=== PATIENT | female | born 2000 | race Caucasian/White ===

== ENCOUNTER 2020-03-10 01:14 | Emergency (ER) | payer SELFPAY ==
[2020-03-10] MEDS ORDERED: ONDANSETRON 4 MG TAB.RAPDIS PO ONE (01:25)
[2020-03-10] MEDS ORDERED: ONDANSETRON 4 MG TAB.RAPDIS ONE (01:26)
[2020-03-10 02:03] LABS: ABSOLUTE EOSINOPHILS # (AUTO) 0.1 10^3/uL (0.0-0.6); ABSOLUTE LYMPHOCYTES (AUTO) 1.3 10^3/uL (0.5-4.7); ABSOLUTE MONOCYTES (AUTO) 0.7 10^3/uL (0.1-1.4); ABSOLUTE NEUT (AUTO) 10.7 10^3/uL (1.7-8.2); BASOPHILS % (AUTO) 0.3 % (0-2); EOSINOPHILS % (AUTO) 0.6 % (0-6); HEMATOCRIT 48.3 % (36.0-47.0); HEMOGLOBIN 16.7 g/dL (12.0-15.5); LYMPHOCYTES % (AUTO) 10.3 % (13-45); MEAN CORPUSCULAR HEMOGLOBIN 29.8 pg (27.0-33.4); MEAN CORPUSCULAR HGB CONC 34.5 g/dL (32.0-36.0); MEAN CORPUSCULAR VOLUME 86 fl (80-97); MONOCYTES % (AUTO) 5.8 % (3-13); PLATELET COUNT 204 10^3/uL (150-450); RED BLOOD COUNT 5.59 10^6/uL (3.72-5.28); RED CELL DISTRIBUTION WIDTH 12.4 % (11.5-14.0); TOTAL CELLS COUNTED % (AUTO) 100 %; WHITE BLOOD COUNT 12.9 10^3/uL (4.0-10.5)
[2020-03-10 02:17] LABS: ALBUMIN 5.1 g/dL (3.5-5.0); ALKALINE PHOSPHATASE 93 U/L (38-126); ANION GAP 12 (5-19); ASPARTATE AMINO TRANSFERASE 29 U/L (14-36); BILIRUBIN,TOTAL 0.9 mg/dL (0.2-1.3); BLOOD UREA NITROGEN 17 mg/dL (7-20); CALCIUM 9.7 mg/dL (8.4-10.2); CARBON DIOXIDE 26 mmol/L (22-30); CHLORIDE 102 mmol/L (98-107); GLUCOSE 104 mg/dL (75-110); POTASSIUM 4.1 mmol/L (3.6-5.0); TOTAL PROTEIN 8.7 g/dL (6.3-8.2)
[2020-03-10] MEDS ORDERED: PROMETHAZINE HCL INJ 25 MG/1 ML VIAL IV ONE (02:19)
--- NOTE | 2020-03-10 02:25 | ER Document Report ---
Entered by JUAN JOSE LESTER SCRIBE 03/10/20 0222 Acting as scribe for:DANNY MONGE IV, MD ED General - General Chief Complaint: Nausea/Vomiting Stated Complaint: POSSIBLE ALLERGIC REACTION Time Seen by Provider: 03/10/20 01:58 Mode of Arrival: Wheelchair Information source: Patient Notes: This 19 year old female patient presents to the ED today with complaints of nausea/vomiting that started x1 hour after eating shrimp prior to arrival. Patient states that she had a similar reaction after eating shrimp in the past, but she was never diagnosed with a shellfish allergy. She reports mild shortness of breath and generalized abdominal pain, but denies rash. No known drug allergies. - Related Data Allergies/Adverse Reactions: No Known Allergies Allergy (Unverified 03/10/20 01:23) Past Medical History - General Information source: Patient - Social History Smoking Status: Current Every Day Smoker Cigarette use (# per day): Yes Chew tobacco use (# tins/day): No Smoking Education Provided: No Frequency of alcohol use: Occasional Drug Abuse: None Family History: Reviewed & Not Pertinent Patient has suicidal ideation: No Patient has homicidal ideation: No Review of Systems - Review of Systems Constitutional: No symptoms reported EENT: No symptoms reported Cardiovascular: No symptoms reported Respiratory: See HPI, Short of breath Gastrointestinal: See HPI, Abdominal pain, Nausea, Vomiting Genitourinary: No symptoms reported Female Genitourinary: No symptoms reported Musculoskeletal: No symptoms reported Skin: See HPI. denies: Rash Hematologic/Lymphatic: No symptoms reported Neurological/Psychological: No symptoms reported -: Yes All other systems reviewed and negative Physical Exam - Vital signs Vitals: Temp Pulse Resp BP Pulse Ox 97.7 F 80 18 109/80 97 03/10/20 01:23 03/10/20 01:23 03/10/20 01:23 03/10/20 01:23 03/10/20 01:23 Interpretation: Normal - General General appearance: Alert In distress: None - HEENT Head: Normocephalic, Atraumatic Eyes: Normal Pupils: PERRL - Respiratory Respiratory status: No respiratory distress Chest status: Nontender Breath sounds: Normal Chest palpation: Normal - Cardiovascular Rhythm: Regular Heart sounds: Normal auscultation Murmur: No Friction rub: No Gallop: None auscultated - Abdominal Inspection: Normal Distension: No distension Bowel sounds: Normal Tenderness: Nontender - Abdomen soft Organomegaly: No organomegaly - Back Back: Normal, Nontender - Extremities General upper extremity: Normal inspection General lower extremity: Normal inspection - Neurological Neuro grossly intact: Yes Orientation: AAOx4 Sherri Coma Scale Eye Opening: Spontaneous Dexter Coma Scale Verbal: Oriented Dexter Coma Scale Motor: Obeys Commands Sherri Coma Scale Total: 15 - Psychological Associated symptoms: Normal affect, Normal mood - Skin Skin Temperature: Warm Skin Moisture: Dry Skin Color: Normal Course - Re-evaluation Re-evalutation: 03/10/20 03:44 Patient states she feels better this time. Patient denies abdominal pain or nausea. - Vital Signs Vital signs: Temp Pulse Resp BP Pulse Ox 97.7 F 80 18 109/80 97 03/10/20 01:23 03/10/20 01:23 03/10/20 01:23 03/10/20 01:23 03/10/20 01:23 - Laboratory Result Diagrams: 03/10/20 01:46 03/10/20 01:46 Laboratory results interpreted by me: 03/10/20 03/10/20 01:46 01:46 WBC 12.9 H RBC 5.59 H Hgb 16.7 H Hct 48.3 H Lymph % (Auto) 10.3 L Absolute Neuts (auto) 10.7 H Seg Neutrophils % 83.0 H Total Protein 8.7 H Albumin 5.1 H Discharge - Discharge Clinical Impression: Nausea and vomiting Qualifiers: Vomiting type: unspecified Vomiting Intractability: non-intractable Qualified Code(s): R11.2 - Nausea with vomiting, unspecified Condition: Stable Disposition: HOME, SELF-CARE Instructions: Vomiting ([facility]) Additional Instructions: Return to the Emergency Department without delay if any worse. HOME CARE INSTRUCTIONS & INFORMATION: Thank you for choosing us for your medical needs. We hope you're satisfied with the care you received. After you leave, you must properly care for your problem and, at the same time, observe its progress. Any condition can change. Some illnesses can change rapidly over hours or days. If your condition worsens, return to the Emergency Department or see your physician promptly. ABOUT YOUR X-RAYS AND EKG'S: If you had an EKG or X-rays taken, they have been read by the Emergency Physician. The X-rays and EKG's will also be read by a Radiologist or Service Sprinkler Helper within 24 hours. If discrepancies are noted, you will be notified by telephone. Please be certain the ED has a correct telephone number & address where you can be reached. Also, realize that some fractures or abnormalities do not show up on initial X-rays. If your symptoms continue, see your physician. ABOUT YOUR LABORATORY TEST: If you had laboratory tests, the results have been reviewed by the Emergency Physician. Some test results (for example cultures) may not be available for several days. You will be contacted if any test result shows you need additional treatment. Please be certain the ED has a correct telephone number and address where you can be reached. ABOUT YOUR MEDICATIONS: You will receive instructions on how to take your medicine on the prescription label you receive. Additional information may be provided by the Pharmacy. If you have questions afterwards, call the ED for clarification or further instructions. Some prescribed medications may cause drowsiness. Do not perform tasks such as driving a car or operating machinery without consulting your Pharmacist. If you feel you need a refill of pain medication, your condition will need re-evaluation. Please do not call for a refill of any medication. ABOUT YOUR SIGNATURE: Signature of this document acknowledges to followin. Understanding that you received emergency treatment and that you may be released before al medical problems are known or treated. Please be certain the ED has a correct phone number & address where you can be reached. 2. Acknowledgement that you will arrange for follow-up care as recommended. 3. Authorization for the Emergency Physician to provide information to your follow-up Physician in order to maximize your care. AT ANY TIME, IF YOUR SYMPTOMS CHANGE SIGNIFICANTLY OR WORSEN OR YOU DEVELOP NEW SYMPTOMS, RETURN TO THE EMERGENCY DEPARTMENT IMMEDIATELY FOR RE-EVALUATION. OUR GOAL IS TO PROVIDE EXCELLENT MEDICAL CARE! WE HOPE THAT WE HAVE MET YOUR EXPECTATIONS DURING YOUR EMERGENCY DEPARTMENT VISIT AND THAT YOU FEEL YOU HAVE RECEIVED EXCELLENT CARE! Referrals: MIKE MANUEL MD [HONORARY] - Follow up as needed I personally performed the services described in the documentation, reviewed and edited the documentation which was dictated to the scribe in my presence, and it accurately records my words and actions.
[2020-03-10 04:11] VITALS: BP 95/63
== END 2020-03-10 04:10 | disposition home or self-care (01) ==
LOC: ER 01:14
DX: R11.2 Nausea with vomiting, unspecified (principal); R06.02 Shortness of breath; R10.84 Generalized abdominal pain; F17.210 Nicotine dependence, cigarettes, uncomplicated
CPT/HCPCS: 99283; 96374; 36415; 85025; 80053; J2550; S0119

== ENCOUNTER 2020-06-28 01:17 | Emergency (ER) | payer SELFPAY ==
[2020-06-28] MEDS ORDERED: ONDANSETRON 4 MG TAB.RAPDIS PO ONE (01:37)
--- NOTE | 2020-06-28 01:38 | ER Document Report ---
ED Medical Screen (RME) - Related Data Home Medications: mucinex, nasal drops - General Chief Complaint: Flu Symptoms Stated Complaint: CONGESTION,SHORTNESS OF BREATH,CHILLS,FEVER Time Seen by Provider: 06/28/20 01:34 Notes: Patient presents complaining of shortness of breath and cough since yesterday. Patient reports hot and cold chills with decreased appetite. Patient states she has had nausea. Patient reports a loss of taste. Patient also complains of headache. Patient additionally complains of difficulty voiding. I have greeted and performed a rapid initial assessment of this patient. A comprehensive ED assessment and evaluation of the patient, analysis of test results and completion of the medical decision making process will be conducted by additional ED providers. (PRIETO MACARIO) - Related Data Allergies/Adverse Reactions: No Known Allergies Allergy (Verified 06/28/20 02:41) Physical Exam - Respiratory Respiratory status: No respiratory distress Breath sounds: Normal - Vital signs Vitals: Temp Pulse Resp BP Pulse Ox 98.1 F 62 16 125/65 96 06/28/20 01:24 06/28/20 01:24 06/28/20 01:24 06/28/20 01:24 06/28/20 01:24 Course - Vital Signs Vital signs: Temp Pulse Resp BP Pulse Ox 98.4 F 68 16 120/74 98 06/28/20 04:38 06/28/20 04:38 06/28/20 04:38 06/28/20 04:38 06/28/20 04:38 - Laboratory Laboratory results interpreted by me: 06/28/20 02:55 Urine Protein 30 H Urine Blood SMALL H Urine Nitrite POSITIVE H Ur Leukocyte Esterase LARGE H Doctor's Discharge - Discharge Clinical Impression: Viral syndrome, UTI (urinary tract infection) Disposition: HOME, SELF-CARE Additional Instructions: Patient was provided with discharge information including: As a person under investigation for Covid 19, the [place] department of Health and Human Services, division of public health advises you to adhere to the following guidance until your test results are reported to you. If your test result is positive, you will receive additional information from your provider and your local health department at that time. Remain at home until you are cleared by the health provider or public health authorities. Keep a log of visitors to your home, notify any visitors to your home of your isolation status. If you plan to move to a new address or leave the county, notify the local health department in your County. Call your doctor or seek care if you have an urgent medical need. Before seeking medical care, call ahead to get instructions from the provider before arriving at the medical office clinic or hospital. Notify them that you are being tested for the virus that causes Covid 19 so that arrangements can be made, as necessary, to prevent transmission to others in the healthcare setting. Next, notify the local health department in your county. If a medical emergency arises and you need to call 911, inform the first responders that you are being tested for the virus that causes Covid 19. Next, notify the local health department in your county. He has a urine infection. Take all antibiotics as prescribed. If you have any worsening symptoms, inability to urinate, back pain, vomiting, dizziness, fainting, fever of 100.4 or higher, difficulty breathing, confusion, or any other worsening or alarming symptoms return to the emergency department immediately. Follow-up with your primary doctor within 1 week. Prescriptions: Ibuprofen [Ibu] 400 mg PO Q6HP PRN #15 tablet PRN Reason: Fever >101 Sulfamethoxazole/Trimethoprim [Bactrim Ds Tablet] 1 tab PO BID 3 Days #6 tablet Forms: Parent Work Note
--- NOTE | 2020-06-28 02:53 | RADIOLOGY REPORT (SQ) ---
EXAM DESCRIPTION: XR CHEST 1 VIEW COMPLETED DATE/TME: 06/28/2020 01:38 CLINICAL HISTORY: sob COMPARISON: None. FINDINGS: Single frontal radiograph view of the chest. Cardiomediastinal silhouette: Normal size and contour. Lungs: No consolidation, pneumothorax, or pleural effusion. Low lung volumes. Bones: Severe dextroconvex scoliosis of the brachial lumbar spine. Upper abdomen: No abnormality identified. IMPRESSION: 1. No acute pneumonic process identified.
[2020-06-28 03:09] LABS: APPEARANCE,URINE CLOUDY; BILIRUBIN,URINE NEGATIVE (NEGATIVE); COLOR,URINE YELLOW; GLUCOSE, URINE NEGATIVE (NEGATIVE); KETONES,URINE NEGATIVE (NEGATIVE); LEUKOCYTE ESTERASE,URINE LARGE (NEGATIVE); NITRITE,URINE POSITIVE (NEGATIVE); PROTEIN,URINE 30 mg/dL (NEGATIVE); URINE SPECIFIC GRAVITY 1.013; UROBILINOGEN,URINE NEGATIVE mg/dL (<2.0)
--- NOTE | 2020-06-28 04:12 | ER Document Report ---
ED General - General Chief Complaint: Flu Symptoms Stated Complaint: CONGESTION,SHORTNESS OF BREATH,CHILLS,FEVER Time Seen by Provider: 06/28/20 01:34 Notes: 19-year-old female history of scoliosis presents with approximately 1 day of chills, dry cough, shortness of breath, also complains of dysuria, urgency, and frequency. Patient denies measured fever, chest pain, lower extremity edema, DVT/PE/hypercoagulability history of self or family, exogenous estrogen therapy, cancer history, hemoptysis, recent travel/trauma/surgery/immobilization, immune compromise history, flank pain, vomiting, dizziness, syncope, urinary retention, vaginal symptoms - Related Data Allergies/Adverse Reactions: No Known Allergies Allergy (Verified 06/28/20 02:41) Home Medications: mucinex, nasal drops Past Medical History - General Information source: Patient - Social History Smoking Status: Current Some Day Smoker Family History: Reviewed & Not Pertinent Review of Systems - Review of Systems Notes: REVIEW OF SYSTEMS: CONSTITUTIONAL : + fever, chills, or sweats. EENT: + recent cold/sinus symptoms, denies throat pain CARDIOVASCULAR: Denies chest pain, DEL RESPIRATORY: + cough, + shortness of breath. GASTROINTESTINAL: Denies abdominal pain, nausea/vomiting. GENITOURINARY: Denies difficulty urinating, +painful urination. FEMALE GENITOURINARY: Denies abnormal vaginal bleeding, vaginal discharge. MUSCULOSKELETAL: Denies neck pain, back pain. SKIN: Denies rash or skin lesions. HEMATOLOGIC : Denies easy bruising or bleeding. LYMPHATIC: Denies swollen, enlarged glands. NEUROLOGICAL: Denies headache, denies change in gait. PSYCHIATRIC: Denies anxiety or stress or depression. Physical Exam - Vital signs Vitals: Temp Pulse Resp BP Pulse Ox 98.1 F 62 16 125/65 96 06/28/20 01:24 06/28/20 01:24 06/28/20 01:24 06/28/20 01:24 06/28/20 01:24 - Notes Notes: PHYSICAL EXAMINATION: GENERAL: Well-appearing, well-nourished and in no acute distress. HEAD: Atraumatic, normocephalic. EYES: Pupils equal round and appropriate constriction, sclera anicteric, conjunctiva are normal. ENT: nares patent, moist mucous membranes. NECK/back: Normal range of motion, supple without lymphadenopathy, scoliosis LUNGS: Breath sounds clear to auscultation bilaterally and equal. No wheezes rales or rhonchi. Normal respiratory rate and effort HEART: Regular rate and rhythm without murmurs ABDOMEN: Soft, nontender, no guarding, no masses, no CVAT EXTREMITIES: Normal range of motion, no pitting or edema. No cyanosis. NEUROLOGICAL: Awake, alert, conversing appropriately, moves all extremities spontaneously. PSYCH: Normal mood, normal affect. SKIN: Warm, Dry, normal turgor, no rashes or lesions noted. Course - Re-evaluation Re-evalutation: 06/28/20 04:09 Patient with 1 day constellation of viral symptoms along with UTI symptoms. No signs of Keith, no respiratory distress, normal vitals, well-appearing, tolerating p.o., no signs of dehydration, no signs of cardiac complications, PERC negative, no emergent findings on chest x-ray. Patient ready for DC with antibiotics for possible UTI on UA. Given extensive return to ED precautions which she demonstrated understanding of. Instructed to quarantine and follow-up with primary doctor. The patient was evaluated during the global COVID-19 pandemic and that diagnosis was suspected/considered upon their initial presentation. Their evaluation, treatment and testing was consistent with current guidelines for patients who present with complaints or symptoms that may be related to COVID-19. - Vital Signs Vital signs: Temp Pulse Resp BP Pulse Ox 98.1 F 62 16 125/65 96 06/28/20 01:24 06/28/20 01:24 06/28/20 01:24 06/28/20 01:24 06/28/20 01:24 - Laboratory Laboratory results interpreted by me: 06/28/20 02:55 Urine Protein 30 H Urine Blood SMALL H Urine Nitrite POSITIVE H Ur Leukocyte Esterase LARGE H Discharge - Discharge Clinical Impression: Viral syndrome UTI (urinary tract infection) Qualifiers: Urinary tract infection type: acute cystitis Hematuria presence: with hematuria Qualified Code(s): N30.01 - Acute cystitis with hematuria Disposition: HOME, SELF-CARE Additional Instructions: Patient was provided with discharge information including: As a person under investigation for Covid 19, the [facility] of Health and Human Services, division of public health advises you to adhere to the following guidance until your test results are reported to you. If your test result is positive, you will receive additional information from your provider and your local health department at that time. Remain at home until you are cleared by the health provider or public health authorities. Keep a log of visitors to your home, notify any visitors to your home of your isolation status. If you plan to move to a new address or leave the county, notify the local health department in your County. Call your doctor or seek care if you have an urgent medical need. Before seeking medical care, call ahead to get instructions from the provider before arriving at the medical office clinic or hospital. Notify them that you are being tested for the virus that causes Covid 19 so that arrangements can be made, as necessary, to prevent transmission to others in the healthcare setting. Next, notify the local health department in your county. If a medical emergency arises and you need to call 911, inform the first responders that you are being tested for the virus that causes Covid 19. Next, notify the local health department in your county. He has a urine infection. Take all antibiotics as prescribed. If you have any worsening symptoms, inability to urinate, back pain, vomiting, dizziness, fainting, fever of 100.4 or higher, difficulty breathing, confusion, or any other worsening or alarming symptoms return to the emergency department immediately. Follow-up with your primary doctor within 1 week. Prescriptions: Ibuprofen [Ibu] 400 mg PO Q6HP PRN #15 tablet PRN Reason: Fever >101 Sulfamethoxazole/Trimethoprim [Bactrim Ds Tablet] 1 tab PO BID 3 Days #6 tablet
[2020-06-28 04:39] VITALS: BP 120/74
== END 2020-06-28 04:38 | disposition home or self-care (01) ==
LOC: ER 01:17
DX: N30.01 Acute cystitis with hematuria (principal); B34.9 Viral infection, unspecified; R05 Cough; R06.02 Shortness of breath; F17.200 Nicotine dependence, unspecified, uncomplicated; Z79.899 Other long term (current) drug therapy; Z20.828 Contact with and (suspected) exposure to other viral communicable diseases
CPT/HCPCS: 99284; 87635; 81025; 81001; 71045; S0119; C9803